=== PATIENT | male | born 1960 | race Caucasian/White ===

== ENCOUNTER 2019-08-30 20:00 | Observation (INO) ==
[2019-08-30] MEDS ORDERED: Acetaminophen 325 MG TABLET PO PRN (21:24)
[2019-08-30] MEDS ORDERED: Naloxone 0.4 MG/ML INJ IVP PRN (21:24)
[2019-08-30] MEDS ORDERED: D5% in Water 1,000 ML IVC PRN (21:30)
[2019-08-30] MEDS ORDERED: 0.9 % Sodium Chloride 1,000 ML IVC SCH (21:30)
[2019-08-30] MEDS ORDERED: *HR* Dextrose 50 % in Water (Syg) 50 ML SYRINGE IVP PRN (21:30)
[2019-08-30] MEDS ORDERED: Insulin DETEMIR 100 UNIT/ML X5UNITS SQ SCH (21:30)
[2019-08-30] MEDS ORDERED: Dextrose Gel 15 GM/37.5 ML TUBE PO PRN ×2 (21:30)
[2019-08-30] MEDS: Insulin LISPRO 300 UNITS/3 ML VIAL SQ SCH (21:40)
[2019-08-30] MEDS ORDERED: *HR* Warfarin 3 MG TABLET PO STA (21:51)
[2019-08-30] MEDS ORDERED: Ipratropium/Albuterol Neb 3 ML IH PRN (22:29)
[2019-08-30 22:41] LABS: Calcium 8.9 mg/dL (8.6-10.3); Potassium 4.7 mEq/L (3.5-5.1)
[2019-08-30 23:40] LABS: Adenovirus Not Detected (Not Detect); Bordetella Pertussis Not Detected (Not Detect); Chlamydophila pneumoniae Not Detected (Not Detect); Coronavirus 229E Not Detected (Not Detect); Coronavirus HKU1 Not Detected (Not Detect); Coronavirus NL63 Not Detected (Not Detect); Coronavirus OC43 Not Detected (Not Detect); Human Metapneumovirus Not Detected (Not Detect); Human Rhinovirus/Enterovirus DETECTED (Not Detect); Influenza A Subtype 2009 H1 Not Detected (Not Detect); Influenza B Not Detected (Not Detect); Mycoplasma pneumoniae Not Detected (Not Detect); Parainfluenza Virus 1 Not Detected (Not Detect); Parainfluenza Virus 2 Not Detected (Not Detect); Parainfluenza Virus 3 Not Detected (Not Detect); Parainfluenza Virus 4 Not Detected (Not Detect); Respiratory Syncytial Virus Not Detected (Not Detect)
[2019-08-30 23:49] LABS: Bilirubin,Urine Negative (Negative); Blood,Urine Negative (Negative); Clarity,Urine Clear (Clear); Color,Urine Yellow (Yellow); Glucose,Urine (UA) Normal (Normal); Ketones,Urine Negative (Negative); Leukocyte Esterase,Urine Negative (Negative); Nitrite,Urine Negative (Negative); Protein,Urine 30 mg/dL (Neg-Trace); Specific Gravity,Urine 1.014 (1.010-1.025); Urobilinogen,Urine Normal (Normal)
[2019-08-30 23:51] LABS: Bacteria,Urine None Seen per hpf (None-Few); Hyaline Casts,Urine None Seen per lpf (None-Few); RBC,Urine 0-3 per hpf (0-3); Squamous Epithelial Cell,Urine Many per lpf (None-Few); WBC,Urine 0-3 per hpf (0-3)
[2019-08-31 01:02] LABS: Basophils # 0.1 K/mcL (0.0-0.2); Basophils % 0.6 %; Eosinophils # 0.3 K/mcL (0.0-0.6); Eosinophils % 2.8 %; Hemoglobin 10.1 g/dL (12.9-16.9); Immature Granulocytes % 0.2 % (0-4); Lymphocytes # 1.3 K/mcL (0.6-4.6); Lymphocytes % 14.5 %; Mean Corpuscular HGB Conc 32.6 g/dL (31.6-35.5); Mean Corpuscular Hemoglobin 32.5 pg (28.0-33.3); Mean Corpuscular Volume 99.7 fL (83.0-100.0); Mean Platelet Volume 12.1 fL (9.4-12.4); Monocytes # 0.7 K/mcL (0.0-1.3); Monocytes % 7.8 %; Neutrophils # 6.6 K/mcL (1.6-8.9); Platelet Count 179 K/mcL (140-400); Red Blood Count 3.11 M/mcL (4.19-5.50); Red Cell Distribution Width 15.8 % (11.5-14.5); Segmented Neutrophils % 74.1 %; White Blood Count 8.9 K/mcL (4.3-11.1)
[2019-08-31 01:10] LABS: INR 2.5; Prothrombin Time 28.8 Seconds (9.4-12.1)
[2019-08-31 01:13] LABS: Activated Partial Thrombo Time 42.5 Seconds (26.0-36.0)
[2019-08-31 01:24] LABS: Albumin 3.8 g/dL (3.5-5.7); Albumin/Globulin Ratio 0.9 (1.1-2.2); Bilirubin,Total 0.5 mg/dL (0.3-1.0); Calcium 8.8 mg/dL (8.6-10.3); Globulin 4.2 g/dL (2.4-3.5); Magnesium 1.9 mg/dL (1.6-2.6); Phosphorous 5.1 mg/dL (2.7-4.5); Potassium 4.4 mEq/L (3.5-5.1)
[2019-08-31] MEDS: Insulin LISPRO 300 UNITS/3 ML VIAL SQ SCH ×2 (08:03→11:54)
[2019-08-31 11:47] VITALS: BP 157/73
[2019-08-31] MEDS ORDERED: FLU Vac QV 19-20 (6Month+)/PF 0.5 ML SYRINGE IM ONE (12:25)
[2019-08-31] MEDS ORDERED: *HR* Warfarin 3 MG TABLET PO ONE (18:00)
[2019-08-31] MEDS ORDERED: Warfarin perPT PO PRN ×2 (18:00)
== END 2019-08-31 13:16 | disposition home or self-care (01) ==
LOC: 2ANU → SUATTDRO 20:03
PROVIDERS: ADMIT Internal Medicine; ATTEND Internal Medicine

== ENCOUNTER 2020-05-24 14:28 | Inpatient (IN) ==
[2020-05-24 15:48] LABS: Basophils # 0.1 K/mcL (0.0-0.2); Basophils % 0.7 %; Eosinophils # 0.2 K/mcL (0.0-0.6); Eosinophils % 2.2 %; Hemoglobin 10.3 g/dL (12.9-16.9); Immature Granulocytes % 0.7 % (0-4); Lymphocytes # 1.5 K/mcL (0.6-4.6); Lymphocytes % 17.3 %; Mean Corpuscular HGB Conc 31.2 g/dL (31.6-35.5); Mean Corpuscular Volume 99.4 fL (83.0-100.0); Mean Platelet Volume 11.7 fL (9.4-12.4); Monocytes # 0.7 K/mcL (0.0-1.3); Neutrophils # 6.2 K/mcL (1.6-8.9); Platelet Count 186 K/mcL (140-400); Red Blood Count 3.32 M/mcL (4.19-5.50); Red Cell Distribution Width 16.5 % (11.5-14.5); Segmented Neutrophils % 71.1 %; White Blood Count 8.7 K/mcL (4.3-11.1)
[2020-05-24] MEDS ORDERED: Furosemide 40 MG/4 ML VIAL IVP ONE (16:02)
[2020-05-24 16:10] LABS: Calcium 8.8 mg/dL (8.6-10.3); Potassium 4.5 mEq/L (3.5-5.1)
[2020-05-24 16:15] LABS: Troponin I 0.04 ng/mL (< 0.04)
[2020-05-24] MEDS ORDERED: Aspirin 81 MG TAB.CHEW PO STA (16:15)
[2020-05-24] MEDS ORDERED: Ondansetron 4 MG/2 ML VIAL IVP PRN (16:57)
[2020-05-24] MEDS ORDERED: Naloxone 0.4 MG/ML INJ IVP PRN (16:57)
[2020-05-24] MEDS ORDERED: *HR* HYDROcodone/Acet 5/325 mg TABLET PO PRN (16:57)
[2020-05-24] MEDS ORDERED: *HR* Dextrose 50 % in Water (Vial) 50 ML VIAL IVP PRN (17:00)
[2020-05-24] MEDS ORDERED: Albuterol 2.5 MG/3 ML NEBULIZER IH PRN (17:00)
[2020-05-24] MEDS ORDERED: D5% in Water 1,000 ML IVC PRN (17:00)
[2020-05-24] MEDS ORDERED: Dextrose Gel 15 GM/37.5 ML TUBE PO PRN ×2 (17:00)
[2020-05-24 17:36] LABS: INR 4.1
[2020-05-24 17:39] LABS: Activated Partial Thrombo Time 46.8 Seconds (26.0-36.0)
[2020-05-24 17:41] LABS: Prothrombin Time 45.4 Seconds (9.4-12.1)
[2020-05-24] MEDS: Bumetanide 1 MG/4 ML VIAL IVP SCH (19:34)
[2020-05-24] MEDS ORDERED: Insulin DETEMIR 100 UNIT/ML X5UNITS SQ SCH (21:00)
[2020-05-24] MEDS ORDERED: *HR* LORazepam 2 MG/ML VIAL IVP ONE (21:54)
[2020-05-24] MEDS: Gabapentin 400 MG CAPSULE PO SCH (22:32)
[2020-05-24] MEDS: hydrALAZINE 25 MG TABLET PO SCH (22:32)
[2020-05-24] MEDS: ISOSORBIDE MONONITRATE 20 MG PO SCH (22:40)
[2020-05-25] MEDS: Warfarin perPT PO SCH ×2 (01:36→20:54)
[2020-05-25 03:04] LABS: Basophils # 0.1 K/mcL (0.0-0.2); Basophils % 0.7 %; Eosinophils # 0.2 K/mcL (0.0-0.6); Eosinophils % 2.9 %; Hematocrit 29.6 % (37.5-50.1); Hemoglobin 9.2 g/dL (12.9-16.9); Immature Granulocytes % 0.4 % (0-4); Lymphocytes # 1.5 K/mcL (0.6-4.6); Lymphocytes % 17.8 %; Mean Corpuscular HGB Conc 31.1 g/dL (31.6-35.5); Mean Corpuscular Hemoglobin 30.6 pg (28.0-33.3); Mean Corpuscular Volume 98.3 fL (83.0-100.0); Mean Platelet Volume 10.8 fL (9.4-12.4); Monocytes # 0.7 K/mcL (0.0-1.3); Monocytes % 8.8 %; Neutrophils # 5.7 K/mcL (1.6-8.9); Platelet Count 169 K/mcL (140-400); Red Blood Count 3.01 M/mcL (4.19-5.50); Red Cell Distribution Width 16.6 % (11.5-14.5); Segmented Neutrophils % 69.4 %; White Blood Count 8.3 K/mcL (4.3-11.1)
[2020-05-25 03:11] LABS: INR 4.3
[2020-05-25 03:18] LABS: Prothrombin Time 47.7 Seconds (9.4-12.1)
[2020-05-25 03:26] LABS: Albumin 3.7 g/dL (3.5-5.7); Bilirubin,Total 0.9 mg/dL (0.3-1.0); Calcium 9.1 mg/dL (8.6-10.3); Globulin 3.7 g/dL (2.4-3.5); Magnesium 2.3 mg/dL (1.6-2.6); Phosphorous 3.8 mg/dL (2.7-4.5); Potassium 4.1 mEq/L (3.5-5.1); Total Protein 7.4 g/dL (6.4-8.9)
[2020-05-25] MEDS: Levothyroxine 25 MCG TABLET PO SCH (05:44)
[2020-05-25] MEDS: Insulin LISPRO 300 UNITS/3 ML VIAL SQ SCH ×3 (09:01→16:59)
[2020-05-25] MEDS: hydrALAZINE 25 MG TABLET PO SCH ×3 (09:08→20:48)
[2020-05-25] MEDS: Gabapentin 400 MG CAPSULE PO SCH (09:08)
[2020-05-25] MEDS: Bumetanide 1 MG/4 ML VIAL IVP SCH ×2 (09:08→16:59)
[2020-05-25] MEDS: ISOSORBIDE MONONITRATE 20 MG PO SCH ×2 (09:08→20:48)
[2020-05-25] MEDS: allopurinoL 300 MG TABLET PO SCH (09:09)
[2020-05-25] MEDS: Gabapentin 300 MG CAPSULE PO SCH ×2 (15:30→20:48)
[2020-05-25] MEDS ORDERED: Insulin DETEMIR 100 UNIT/ML X5UNITS SQ SCH (21:00)
[2020-05-26 04:47] LABS: Basophils # 0.1 K/mcL (0.0-0.2); Basophils % 0.7 %; Eosinophils # 0.2 K/mcL (0.0-0.6); Eosinophils % 2.8 %; Hematocrit 30.4 % (37.5-50.1); Hemoglobin 9.4 g/dL (12.9-16.9); Immature Granulocytes % 0.7 % (0-4); Lymphocytes # 1.7 K/mcL (0.6-4.6); Lymphocytes % 19.3 %; Mean Corpuscular HGB Conc 30.9 g/dL (31.6-35.5); Mean Corpuscular Hemoglobin 30.7 pg (28.0-33.3); Mean Corpuscular Volume 99.3 fL (83.0-100.0); Mean Platelet Volume 11.6 fL (9.4-12.4); Monocytes # 0.9 K/mcL (0.0-1.3); Monocytes % 9.9 %; Neutrophils # 5.8 K/mcL (1.6-8.9); Platelet Count 187 K/mcL (140-400); Red Blood Count 3.06 M/mcL (4.19-5.50); Red Cell Distribution Width 16.5 % (11.5-14.5); Segmented Neutrophils % 66.6 %; White Blood Count 8.7 K/mcL (4.3-11.1)
[2020-05-26 04:52] LABS: INR 3.8
[2020-05-26 05:05] LABS: Calcium 9.6 mg/dL (8.6-10.3); Magnesium 2.1 mg/dL (1.6-2.6); Phosphorous 3.6 mg/dL (2.7-4.5)
[2020-05-26] MEDS: Levothyroxine 25 MCG TABLET PO SCH (05:06)
[2020-05-26] MEDS: Insulin LISPRO 300 UNITS/3 ML VIAL SQ SCH ×2 (07:51→11:45)
[2020-05-26] MEDS: hydrALAZINE 25 MG TABLET PO SCH (07:58)
[2020-05-26] MEDS: Bumetanide 1 MG/4 ML VIAL IVP SCH (07:58)
[2020-05-26] MEDS: Gabapentin 300 MG CAPSULE PO SCH (07:59)
[2020-05-26] MEDS: allopurinoL 300 MG TABLET PO SCH (07:59)
[2020-05-26] MEDS: ISOSORBIDE MONONITRATE 20 MG PO SCH (08:00)
[2020-05-26] MEDS ORDERED: Cholecalciferol (D-3) 1,000 UNIT (25MCG) TABLET PO SCH (09:00)
[2020-05-26] MEDS ORDERED: Ascorbic Acid 500 MG TABLET PO SCH (09:00)
[2020-05-26] MEDS ORDERED: Magnesium Oxide 400 MG TABLET PO SCH (09:00)
[2020-05-26] MEDS ORDERED: (Ezetimibe [Zetia] 10 MG) PO SCH (09:00)
[2020-05-26 10:39] VITALS: BP 152/78
[2020-05-26] MEDS ORDERED: FLU Vac QV 20-21 (6Month+)/PF 0.5 ML SYRINGE IM ONE ×2 (11:51→14:45)
== END 2020-05-26 17:30 | disposition home or self-care (01) | DRG 291 ==
LOC: 2ANU 14:28 → EMEROOARM 14:28 → 2ANU 18:44 → SUATTDRO 05-25 12:15
PROVIDERS: ADMIT Internal Medicine; ATTEND Internal Medicine

== ENCOUNTER 2021-10-01 15:54 | Inpatient (IN) ==
[2021-10-01] MEDS ORDERED: Naloxone 0.4 MG/ML INJ IVP PRN (18:20)
[2021-10-01] MEDS ORDERED: Melatonin 3 MG TABLET PO PRN (18:20)
[2021-10-01] MEDS ORDERED: Dextrose 4 GM Chewable Tablets PO PRN ×2 (18:26)
[2021-10-01] MEDS ORDERED: D5% in Water 1,000 ML IVC PRN (18:26)
[2021-10-01] MEDS ORDERED: *HR* Dextrose 50 % in Water (Syg) 50 ML SYRINGE IVP PRN (18:26)
[2021-10-01] MEDS: Ondansetron 4 MG/2 ML VIAL IVP PRN (20:00)
[2021-10-01] MEDS: Insulin LISPRO 300 UNITS/3 ML VIAL SUBQ SCH (20:01)
[2021-10-01 20:12] LABS: Basophils % 0.2 %; Eosinophils % 0.1 %; Hematocrit 26.8 % (37.5-50.1); Hemoglobin 8.7 g/dL (12.9-16.9); Lymphocytes # 0.3 K/mcL (0.6-4.6); Lymphocytes % 2.7 %; Mean Corpuscular HGB Conc 32.5 g/dL (31.6-35.5); Mean Corpuscular Hemoglobin 31.9 pg (28.0-33.3); Mean Corpuscular Volume 98.2 fL (83.0-100.0); Mean Platelet Volume 11.6 fL (9.4-12.4); Monocytes % 8.6 %; Neutrophils # 10.5 K/mcL (1.6-8.9); Platelet Count 274 K/mcL (140-400); Red Blood Count 2.73 M/mcL (4.19-5.50); Red Cell Distribution Width 15.5 % (11.5-14.5); Segmented Neutrophils % 87.4 %
[2021-10-01 20:29] LABS: Complement C3 120 mg/dL (87-200)
[2021-10-01 20:38] LABS: INR 6.4; Prothrombin Time 70.6 Seconds (9.4-12.1)
[2021-10-01 20:50] LABS: Alanine Aminotransferase 14 Units/L (7-52); Albumin 2.8 g/dL (3.5-5.7); Albumin/Globulin Ratio 0.6 (1.1-2.2); Alkaline Phosphatase 162 Units/L (34-104); Aspartate Amino Transferase 15 Units/L (13-39); Bilirubin,Total 0.5 mg/dL (0.3-1.0); Blood Urea Nitrogen > 130 mg/dL (8-23); Calcium 7.5 mg/dL (8.6-10.3); Carbon Dioxide 11 mEq/L (23-29); Chloride 95 mEq/L (98-107); Globulin 4.8 g/dL (2.4-3.5); Glucose 157 mg/dL (70-105); Potassium 6.3 mEq/L (3.5-5.1); Sodium 123 mEq/L (136-145); Thyroid Stimulating Hormone 7.857 mcIU/mL (0.340-5.600); Total Protein 7.6 g/dL (6.4-8.9); eGFR For African Americans 8 (> 60); eGFR For Non-African Americans 6 (> 60)
[2021-10-01] MEDS ORDERED: 0.9 % Sodium Chloride 250 ML ONE (21:19)
[2021-10-01 21:33] LABS: Hepatitis C Virus Antibody Nonreactive (Nonreactive)
[2021-10-01 21:35] LABS: Hepatitis A Antibody IgM Nonreactive (Nonreactive)
[2021-10-01] MEDS ORDERED: Perflutren Lipid Microsphere 1.3 ML in 0.9 % Sodium Chloride 8.7 ML IVP PRN (22:07)
[2021-10-01] MEDS ORDERED: SODIUM ZIRCONIUM CYCLOSILICATE 5 GM POWD.PACK PO ONE (22:13)
[2021-10-01] MEDS ORDERED: Calcium Gluconate 1gm/50mL 1 GM/50 ML BAG IVPB ONE (22:13)
[2021-10-01] MEDS ORDERED: Insulin Human Regular 10 UNIT in 0.9 % Sodium Chloride 10 ML IV ONE (22:13)
[2021-10-02] MEDS ORDERED: Albumin 25% 25gram/100mL 25 GM/100 ML IV.SOLN IVPB ONE ×2 (01:44→05:46)
[2021-10-02 02:41] LABS: Hepatitis B Surface Antigen Nonreactive (Nonreactive)
[2021-10-02 02:49] LABS: Hematocrit 23.8 % (37.5-50.1); Hemoglobin 8.2 g/dL (12.9-16.9); Immature Granulocytes % 0.8 % (0-4); Lymphocytes # 0.3 K/mcL (0.6-4.6); Lymphocytes % 3.3 %; Mean Corpuscular HGB Conc 34.5 g/dL (31.6-35.5); Mean Corpuscular Hemoglobin 32.9 pg (28.0-33.3); Mean Corpuscular Volume 95.6 fL (83.0-100.0); Mean Platelet Volume 10.9 fL (9.4-12.4); Monocytes % 10.1 %; Neutrophils # 8.4 K/mcL (1.6-8.9); Platelet Count 253 K/mcL (140-400); Red Blood Count 2.49 M/mcL (4.19-5.50); Red Cell Distribution Width 15.2 % (11.5-14.5); Segmented Neutrophils % 85.8 %; White Blood Count 9.8 K/mcL (4.3-11.1)
[2021-10-02 03:00] LABS: INR 4.4; Prothrombin Time 48.3 Seconds (9.4-12.1)
[2021-10-02 03:03] LABS: Chol/HDL Ratio 2.3 (0-4.9); Phosphorous 10.7 mg/dL (2.7-4.5)
[2021-10-02 03:08] LABS: Blood Urea Nitrogen > 130 mg/dL (8-23); Calcium 7.6 mg/dL (8.6-10.3); Carbon Dioxide 15 mEq/L (23-29); Chloride 95 mEq/L (98-107); Glucose 138 mg/dL (70-105); Potassium 6.5 mEq/L (3.5-5.1); Sodium 126 mEq/L (136-145); eGFR For African Americans 7 (> 60); eGFR For Non-African Americans 6 (> 60)
[2021-10-02] MEDS ORDERED: Insulin Human Regular 10 UNIT in 0.9 % Sodium Chloride 10 ML IV ONE (03:11)
[2021-10-02] MEDS ORDERED: *HR* Dextrose 50 % in Water (Syg) 50 ML SYRINGE IVP ONE (03:14)
[2021-10-02] MEDS ORDERED: Albuterol Neb 7.5 MG, Sodium Chloride for inhalation 12 ML IH ONE (03:15)
[2021-10-02] MEDS: Calcium Gluconate 1gm/50mL 1 GM/50 ML BAG IVPB PRN ×2 (03:36→17:05)
[2021-10-02] MEDS ORDERED: 0.9 % Sodium Chloride 250 ML IVC SCH (04:45)
[2021-10-02] MEDS ORDERED: Albumin 25% 25gram/100mL 25 GM/100 ML IV.SOLN ONE (05:46)
[2021-10-02] MEDS: Ondansetron 4 MG/2 ML VIAL IVP PRN (06:35)
[2021-10-02 06:38] LABS: ABG Base Excess -15 mEq/L (-2 to 3); ABG HCO3 12 mEq/L (21-27); ABG Oxygen Saturation 96 % (95-98); ABG PCO2 28 mmHg (35-45); ABG PH 7.23 pH Units (7.32-7.45); ABG PO2 94 mmHg (85-104); ABG TCO2 12 mEq/L (20-26)
[2021-10-02 06:40] LABS: VBG Ionized Calcium 1.01 mmol/L (1.15-1.35)
[2021-10-02 06:40] LABS: Eosinophils % 0.1 %; Hematocrit 22.6 % (37.5-50.1); Hemoglobin 7.4 g/dL (12.9-16.9); Immature Granulocytes % 0.8 % (0-4); Lymphocytes # 0.4 K/mcL (0.6-4.6); Lymphocytes % 4.6 %; Mean Corpuscular HGB Conc 32.7 g/dL (31.6-35.5); Mean Corpuscular Hemoglobin 32.2 pg (28.0-33.3); Mean Corpuscular Volume 98.3 fL (83.0-100.0); Mean Platelet Volume 11.3 fL (9.4-12.4); Monocytes # 1.2 K/mcL (0.0-1.3); Monocytes % 13.6 %; Nucleated Red Blood Cells 0.2 /100 WBC (0); Platelet Count 205 K/mcL (140-400); Red Cell Distribution Width 15.5 % (11.5-14.5); Segmented Neutrophils % 80.9 %; White Blood Count 8.7 K/mcL (4.3-11.1)
[2021-10-02] MEDS ORDERED: SODIUM ZIRCONIUM CYCLOSILICATE 5 GM POWD.PACK PO ONE (06:46)
[2021-10-02 06:51] LABS: INR 3.5; Prothrombin Time 38.8 Seconds (9.4-12.1)
[2021-10-02] MEDS ORDERED: 0.9 % Sodium Chloride 250 ML ONE (06:54)
[2021-10-02 06:59] LABS: Alanine Aminotransferase 12 Units/L (7-52); Albumin/Globulin Ratio 0.8 (1.1-2.2); Alkaline Phosphatase 135 Units/L (34-104); Aspartate Amino Transferase 13 Units/L (13-39); Bilirubin,Direct 0.2 mg/dL (0.0-0.2); Bilirubin,Indirect 0.3 mg/dL (0.0-1.0); Bilirubin,Total 0.5 mg/dL (0.3-1.0); Blood Urea Nitrogen > 130 mg/dL (8-23); Calcium 7.5 mg/dL (8.6-10.3); Carbon Dioxide 12 mEq/L (23-29); Chloride 95 mEq/L (98-107); Globulin 3.9 g/dL (2.4-3.5); Glucose 147 mg/dL (70-105); Magnesium 2.2 mg/dL (1.6-2.6); Potassium 5.6 mEq/L (3.5-5.1); Sodium 126 mEq/L (136-145); Total Protein 6.9 g/dL (6.4-8.9); eGFR For African Americans 7 (> 60); eGFR For Non-African Americans 6 (> 60)
[2021-10-02] MEDS: Insulin LISPRO 300 UNITS/3 ML VIAL SUBQ SCH ×4 (08:14→21:13)
[2021-10-02] MEDS: Sodium Bicarbonate 150 MEQ in D5% in Water 1,000 ML IVC SCH (08:15)
[2021-10-02] MEDS ORDERED: 0.9 % Sodium Chloride 1,000 ML ONE (09:16)
[2021-10-02] MEDS ORDERED: *HR* Heparin 5,000 UNIT/ML VIAL ONE (09:51)
[2021-10-02] MEDS: Norepinephrine 4 MG/254 ML IV.SOLN IVC SCH ×2 (10:27→21:21)
[2021-10-02] MEDS ORDERED: *HR* Rocuronium Bromide 50 MG/5 ML VIAL IVP ONE (10:42)
[2021-10-02] MEDS ORDERED: *HR* Etomidate 20 MG/10 ML AMPUL IVP ONE (10:42)
[2021-10-02] MEDS ORDERED: *HR* Midazolam HCl 5 MG/5 ML VIAL IVP ONE (10:42)
[2021-10-02] MEDS ORDERED: Calcium Gluconate 1gm/50mL 1 GM/50 ML BAG IVPB PRN ×2 (10:47)
[2021-10-02 11:20] LABS: Hematocrit 24.1 % (37.5-50.1); Hemoglobin 7.9 g/dL (12.9-16.9)
[2021-10-02 11:28] LABS: INR 2.9; Prothrombin Time 32.2 Seconds (9.4-12.1)
[2021-10-02] MEDS ORDERED: Artificial Tears SOLN 15 ML BOTTLE BOTH EYES PRN (11:43)
[2021-10-02] MEDS: Dexmedetomidine HCl 400 MCG/100 ML MLS IVC SCH ×3 (11:58→21:16)
[2021-10-02] MEDS: FentaNYL (PF) 1,000 MCG/100 ML IV.SOLN IVC SCH ×3 (11:58→23:46)
[2021-10-02 11:59] LABS: Blood Urea Nitrogen > 130 mg/dL (8-23); Calcium 7.5 mg/dL (8.6-10.3); Carbon Dioxide 12 mEq/L (23-29); Chloride 94 mEq/L (98-107); Glucose 187 mg/dL (70-105); Potassium 5.8 mEq/L (3.5-5.1); Sodium 126 mEq/L (136-145); eGFR For African Americans 7 (> 60); eGFR For Non-African Americans 6 (> 60)
[2021-10-02] MEDS ORDERED: Cefepime HCl 2,000 MG in 0.9 % Sodium Chloride 10 ML IVPB SCH (12:00)
[2021-10-02] MEDS: 0.9 % Sodium Chloride 1,000 ML PRIME SCH ×3 (12:09→13:24)
[2021-10-02 13:18] LABS: INR 2.2; Prothrombin Time 24.3 Seconds (9.4-12.1)
[2021-10-02] MEDS ORDERED: 0.9 % Sodium Chloride 1,000 ML PRIME PRN (14:16)
[2021-10-02 14:49] LABS: RBC,Peritoneal Fluid 6000 RBC/mcL
[2021-10-02 15:10] LABS: Hematocrit 25.7 % (37.5-50.1); Hemoglobin 8.4 g/dL (12.9-16.9)
[2021-10-02 15:12] LABS: Total Protein,Peritoneal Fluid 4.5 g/dL
[2021-10-02 15:26] LABS: Blood Urea Nitrogen > 130 mg/dL (8-23); Calcium 7.4 mg/dL (8.6-10.3); Carbon Dioxide 13 mEq/L (23-29); Chloride 94 mEq/L (98-107); Glucose 216 mg/dL (70-105); Potassium 6.2 mEq/L (3.5-5.1); Sodium 125 mEq/L (136-145); eGFR For African Americans 7 (> 60); eGFR For Non-African Americans 6 (> 60)
[2021-10-02 15:37] LABS: Basophils,Peritoneal Fluid 0 %; Eosinophils,Peritoneal Fluid 0 %
[2021-10-02 15:38] LABS: Appearance of Peritoneal Fl CLOUDY (Clear)
[2021-10-02] MEDS: PrismaSATE BGK 4/2.5 5,000 ML CRRT SCH ×4 (15:48→22:38)
[2021-10-02] MEDS: Calcium Chloride 4,000 MG in 0.9 % Sodium Chloride 1,000 ML CRRT SCH (15:48)
[2021-10-02] MEDS: SODIUM CITRATE 500 ML CRRT SCH ×2 (15:49→16:43)
[2021-10-02] MEDS: Artificial Tears SOLN 15 ML BOTTLE BOTH EYES SCH ×4 (15:49→23:47)
[2021-10-02 15:57] LABS: ABG Base Excess -13 mEq/L (-2 to 3); ABG HCO3 12 mEq/L (21-27); ABG Oxygen Saturation 99 % (95-98); ABG PCO2 26 mmHg (35-45); ABG PH 7.28 pH Units (7.32-7.45); ABG PO2 153 mmHg (85-104); ABG TCO2 13 mEq/L (20-26); Blood Gas VT 450 cc
[2021-10-02] MEDS: SODIUM ZIRCONIUM CYCLOSILICATE 5 GM POWD.PACK PO SCH ×2 (16:39→19:41)
[2021-10-02] MEDS: MetroNIDAZOLE 500 MG/100 ML 500 MG/100 ML BAG IVPB SCH ×2 (16:40→23:57)
[2021-10-02 16:49] LABS: VBG Ionized Calcium 0.96 mmol/L (1.15-1.35)
[2021-10-02] MEDS: Pantoprazole 40 MG VIAL IVP SCH (17:21)
[2021-10-02 17:23] LABS: Bilirubin,Urine Negative (Negative); Blood,Urine Large (Negative); Clarity,Urine Ex.Turbid (Clear); Glucose,Urine (UA) Normal (Normal); Hyaline Casts,Urine Many per lpf (None Seen); Ketones,Urine Negative (Negative); Leukocyte Esterase,Urine Moderate (Negative); Nitrite,Urine Negative (Negative); Protein,Urine >=300 mg/dL (Neg-Trace); RBC,Urine TNTC per hpf (0-3); Specific Gravity,Urine 1.019 (1.010-1.025); Urobilinogen,Urine Normal (Normal); WBC,Urine TNTC per hpf (0-3)
[2021-10-02 17:25] LABS: Color,Urine Light-Red (Yellow)
[2021-10-02 18:00] LABS: Chloride,Urine 69 mEq/L; Creatinine,Urine 73 mg/dL; Microalbumin,Urine > 1350 mg/L; Potassium,Urine 19.6 mEq/L; Sodium, Urine 78.3 mEq/L
[2021-10-02 18:40] LABS: VBG Ionized Calcium 0.39 mmol/L (1.15-1.35)
[2021-10-02] MEDS: Chlorhexidine Rinse 15 ML MOUTHWASH MM SCH (19:41)
[2021-10-02 21:07] LABS: Hematocrit 23.8 % (37.5-50.1); Hemoglobin 8.1 g/dL (12.9-16.9)
[2021-10-02 21:08] LABS: VBG Ionized Calcium 1.05 mmol/L (1.15-1.35)
[2021-10-02 21:28] LABS: Calcium 8.1 mg/dL (8.6-10.3); Potassium 5.1 mEq/L (3.5-5.1)
[2021-10-02 23:17] LABS: ABG Ionized Calcium 1.07 mmol/L (1.15-1.35)
[2021-10-03] MEDS: SODIUM CITRATE 500 ML CRRT SCH ×5 (00:02→18:27)
[2021-10-03] MEDS: Insulin LISPRO 300 UNITS/3 ML VIAL SUBQ SCH ×7 (00:17→23:23)
[2021-10-03] MEDS: PrismaSATE BGK 4/2.5 5,000 ML CRRT SCH ×14 (02:00→22:25)
[2021-10-03 02:32] LABS: VBG Ionized Calcium 1.09 mmol/L (1.15-1.35)
[2021-10-03] MEDS: Dexmedetomidine HCl 400 MCG/100 ML MLS IVC SCH ×5 (03:12→21:53)
[2021-10-03 03:43] LABS: Calcium 8.2 mg/dL (8.6-10.3); Potassium 4.5 mEq/L (3.5-5.1)
[2021-10-03] MEDS: Artificial Tears SOLN 15 ML BOTTLE BOTH EYES SCH ×6 (03:46→23:56)
[2021-10-03 04:20] LABS: Hematocrit 25.5 % (37.5-50.1); Hemoglobin 8.8 g/dL (12.9-16.9)
[2021-10-03 04:44] LABS: ABG Base Excess -2 mEq/L (-2 to 3); ABG HCO3 21 mEq/L (21-27); ABG Oxygen Saturation 100 % (95-98); ABG PCO2 30 mmHg (35-45); ABG PH 7.45 pH Units (7.32-7.45); ABG PO2 176 mmHg (85-104); ABG TCO2 22 mEq/L (20-26); Blood Gas Modality AF; Blood Gas VT 450 cc
[2021-10-03 05:17] LABS: VBG Ionized Calcium 1.13 mmol/L (1.15-1.35)
[2021-10-03] MEDS: Calcium Chloride 4,000 MG in 0.9 % Sodium Chloride 1,000 ML CRRT SCH ×2 (05:24→16:03)
[2021-10-03] MEDS: FentaNYL (PF) 1,000 MCG/100 ML IV.SOLN IVC SCH ×3 (05:55→18:51)
[2021-10-03] MEDS: Pantoprazole 40 MG VIAL IVP SCH ×2 (05:56→17:01)
[2021-10-03] MEDS: Sodium Bicarbonate 150 MEQ in D5% in Water 1,000 ML IVC SCH (06:53)
[2021-10-03] MEDS: Chlorhexidine Rinse 15 ML MOUTHWASH MM SCH ×2 (07:23→20:25)
[2021-10-03] MEDS: MetroNIDAZOLE 500 MG/100 ML 500 MG/100 ML BAG IVPB SCH ×3 (07:23→23:56)
[2021-10-03] MEDS: SODIUM ZIRCONIUM CYCLOSILICATE 5 GM POWD.PACK PO SCH ×2 (07:23→14:04)
[2021-10-03 08:04] LABS: Troponin I 1.43 ng/mL (< 0.04)
[2021-10-03 08:06] LABS: Basophils % 0.2 %; Eosinophils # 0.1 K/mcL (0.0-0.6); Eosinophils % 0.6 %; Hemoglobin 9.3 g/dL (12.9-16.9); Immature Granulocytes % 0.9 % (0-4); Lymphocytes # 0.5 K/mcL (0.6-4.6); Lymphocytes % 3.9 %; Mean Corpuscular HGB Conc 34.4 g/dL (31.6-35.5); Mean Corpuscular Hemoglobin 32.4 pg (28.0-33.3); Mean Corpuscular Volume 94.1 fL (83.0-100.0); Mean Platelet Volume 11.2 fL (9.4-12.4); Monocytes # 1.1 K/mcL (0.0-1.3); Monocytes % 8.6 %; Neutrophils # 10.8 K/mcL (1.6-8.9); Nucleated Red Blood Cells 0.2 /100 WBC (0); Platelet Count 267 K/mcL (140-400); Red Blood Count 2.87 M/mcL (4.19-5.50); Red Cell Distribution Width 15.1 % (11.5-14.5); Segmented Neutrophils % 85.8 %; White Blood Count 12.6 K/mcL (4.3-11.1)
[2021-10-03 08:07] LABS: Estimated Average Glucose 169 mg/dl; Hemoglobin A1C 7.5 %
[2021-10-03] MEDS: Cefepime HCl 2,000 MG in 0.9 % Sodium Chloride 10 ML IVPB SCH ×2 (08:14→20:23)
[2021-10-03 08:15] LABS: INR 1.8; Prothrombin Time 20.5 Seconds (9.4-12.1)
[2021-10-03 08:32] LABS: Calcium 8.5 mg/dL (8.6-10.3); Potassium 4.4 mEq/L (3.5-5.1)
[2021-10-03] MEDS: Phenylephrine 50 MG in 0.9 % Sodium Chloride 250 ML IVC SCH ×2 (09:28→19:00)
[2021-10-03] MEDS: Norepinephrine 4 MG/254 ML IV.SOLN IVC SCH ×2 (10:34→23:56)
[2021-10-03] MEDS ORDERED: 0.9 % Sodium Chloride 1,000 ML ONE (15:29)
[2021-10-03 17:08] LABS: ABG Ionized Calcium 1.21 mmol/L (1.15-1.35)
[2021-10-03 19:44] LABS: Hematocrit 29.8 % (37.5-50.1); Hemoglobin 10.1 g/dL (12.9-16.9)
[2021-10-03 23:26] LABS: VBG Ionized Calcium 0.73 mmol/L (1.15-1.35)
[2021-10-04] MEDS: FentaNYL (PF) 1,000 MCG/100 ML IV.SOLN IVC SCH ×6 (00:26→22:45)
[2021-10-04 00:37] LABS: VBG Ionized Calcium 1.26 mmol/L (1.15-1.35)
[2021-10-04] MEDS: SODIUM CITRATE 500 ML CRRT SCH ×4 (00:37→19:24)
[2021-10-04] MEDS: Dexmedetomidine HCl 400 MCG/100 ML MLS IVC SCH ×4 (01:58→18:21)
[2021-10-04] MEDS: Calcium Chloride 4,000 MG in 0.9 % Sodium Chloride 1,000 ML CRRT SCH ×2 (02:51→15:00)
[2021-10-04 03:38] LABS: Basophils % 0.3 %; Eosinophils # 0.1 K/mcL (0.0-0.6); Eosinophils % 1.1 %; Hematocrit 30.3 % (37.5-50.1); Hemoglobin 10.2 g/dL (12.9-16.9); Immature Granulocytes % 0.7 % (0-4); Lymphocytes # 0.9 K/mcL (0.6-4.6); Lymphocytes % 7.3 %; Mean Corpuscular HGB Conc 33.7 g/dL (31.6-35.5); Mean Corpuscular Hemoglobin 32.4 pg (28.0-33.3); Mean Corpuscular Volume 96.2 fL (83.0-100.0); Monocytes # 1.7 K/mcL (0.0-1.3); Monocytes % 14.7 %; Neutrophils # 8.9 K/mcL (1.6-8.9); Nucleated Red Blood Cells 0.3 /100 WBC (0); Platelet Count 239 K/mcL (140-400); Red Blood Count 3.15 M/mcL (4.19-5.50); Red Cell Distribution Width 15.7 % (11.5-14.5); Segmented Neutrophils % 75.9 %; White Blood Count 11.7 K/mcL (4.3-11.1)
[2021-10-04] MEDS: Phenylephrine 50 MG in 0.9 % Sodium Chloride 250 ML IVC SCH ×2 (03:39→23:28)
[2021-10-04 03:55] LABS: VBG HCO3 26 mEq/L (21-27); VBG PCO2 43 mmHg (41-51); VBG PH 7.39 pH Units (7.32-7.42); VBG PO2 62 mmHg (25-50)
[2021-10-04 03:57] LABS: Albumin 2.6 g/dL (3.5-5.7); Albumin/Globulin Ratio 0.7 (1.1-2.2); Bilirubin,Direct 0.4 mg/dL (0.0-0.2); Bilirubin,Indirect 0.3 mg/dL (0.0-1.0); Bilirubin,Total 0.7 mg/dL (0.3-1.0); Calcium 9.1 mg/dL (8.6-10.3); Globulin 3.8 g/dL (2.4-3.5); Potassium 4.5 mEq/L (3.5-5.1); Total Protein 6.4 g/dL (6.4-8.9)
[2021-10-04] MEDS: PrismaSATE BGK 4/2.5 5,000 ML CRRT SCH ×10 (04:12→15:29)
[2021-10-04] MEDS: Artificial Tears SOLN 15 ML BOTTLE BOTH EYES SCH ×6 (04:12→22:48)
[2021-10-04] MEDS: Insulin LISPRO 300 UNITS/3 ML VIAL SUBQ SCH ×6 (04:12→23:16)
[2021-10-04 04:29] LABS: ABG Base Excess 1 mEq/L (-2 to 3); ABG HCO3 25 mEq/L (21-27); ABG Oxygen Saturation 90 % (95-98); ABG PCO2 37 mmHg (35-45); ABG PH 7.44 pH Units (7.32-7.45); ABG PO2 57 mmHg (85-104); ABG TCO2 26 mEq/L (20-26); Blood Gas Modality AF; Blood Gas VT 450 cc
[2021-10-04] MEDS: Pantoprazole 40 MG VIAL IVP SCH ×2 (05:15→17:12)
[2021-10-04] MEDS: Sodium Bicarbonate 150 MEQ in D5% in Water 1,000 ML IVC SCH (06:00)
[2021-10-04 06:16] LABS: VBG Ionized Calcium 1.28 mmol/L (1.15-1.35)
[2021-10-04] MEDS: MetroNIDAZOLE 500 MG/100 ML 500 MG/100 ML BAG IVPB SCH ×3 (07:53→22:48)
[2021-10-04] MEDS: Chlorhexidine Rinse 15 ML MOUTHWASH MM SCH ×2 (07:53→19:28)
[2021-10-04] MEDS: Norepinephrine 4 MG/254 ML IV.SOLN IVC SCH (07:55)
[2021-10-04] MEDS: Cefepime HCl 2,000 MG in 0.9 % Sodium Chloride 10 ML IVPB SCH ×2 (08:03→19:28)
[2021-10-04] MEDS ORDERED: 0.9 % Sodium Chloride 1,000 ML ONE (11:17)
[2021-10-04 12:21] LABS: VBG Ionized Calcium 1.31 mmol/L (1.15-1.35)
[2021-10-04 17:55] LABS: VBG Ionized Calcium 1.32 mmol/L (1.15-1.35)
[2021-10-04 23:04] LABS: VBG Ionized Calcium 1.35 mmol/L (1.15-1.35)
[2021-10-04 23:11] LABS: Calcium 9.5 mg/dL (8.6-10.3); Potassium 4.4 mEq/L (3.5-5.1)
[2021-10-05] MEDS ORDERED: *HR* Midazolam HCl 5 MG/5 ML VIAL IVP ONE (00:19)
[2021-10-05] MEDS: Calcium Chloride 4,000 MG in 0.9 % Sodium Chloride 1,000 ML CRRT SCH ×2 (01:21→16:00)
[2021-10-05] MEDS: PrismaSATE BGK 4/2.5 5,000 ML CRRT SCH ×14 (02:00→23:23)
[2021-10-05] MEDS: FentaNYL (PF) 1,000 MCG/100 ML IV.SOLN IVC SCH ×2 (02:14→07:20)
[2021-10-05] MEDS: SODIUM CITRATE 500 ML CRRT SCH ×5 (02:16→20:39)
[2021-10-05] MEDS: Insulin LISPRO 300 UNITS/3 ML VIAL SUBQ SCH ×6 (03:45→23:28)
[2021-10-05] MEDS: Artificial Tears SOLN 15 ML BOTTLE BOTH EYES SCH ×6 (03:46→23:24)
[2021-10-05 04:03] LABS: ABG Base Excess 1 mEq/L (-2 to 3); ABG HCO3 26 mEq/L (21-27); ABG Oxygen Saturation 90 % (95-98); ABG PCO2 41 mmHg (35-45); ABG PO2 58 mmHg (85-104); ABG TCO2 27 mEq/L (20-26); Blood Gas Modality AF; Blood Gas VT 450 cc
[2021-10-05] MEDS: *HR* Heparin 5,000 UNIT/ML VIAL IVP PRN (04:03)
[2021-10-05] MEDS: Norepinephrine 4 MG/254 ML IV.SOLN IVC SCH ×3 (04:08→23:29)
[2021-10-05] MEDS: Pantoprazole 40 MG VIAL IVP SCH ×2 (05:22→17:07)
[2021-10-05 05:37] LABS: VBG Ionized Calcium 1.39 mmol/L (1.15-1.35)
[2021-10-05 05:48] LABS: Basophils # 0.1 K/mcL (0.0-0.2); Basophils % 0.4 %; Eosinophils # 0.1 K/mcL (0.0-0.6); Eosinophils % 0.4 %; Hematocrit 28.7 % (37.5-50.1); Hemoglobin 9.6 g/dL (12.9-16.9); Immature Granulocytes % 0.7 % (0-4); Lymphocytes # 0.9 K/mcL (0.6-4.6); Lymphocytes % 6.3 %; Mean Corpuscular HGB Conc 33.4 g/dL (31.6-35.5); Mean Corpuscular Volume 98.6 fL (83.0-100.0); Mean Platelet Volume 10.7 fL (9.4-12.4); Monocytes # 1.6 K/mcL (0.0-1.3); Monocytes % 11.2 %; Neutrophils # 11.3 K/mcL (1.6-8.9); Nucleated Red Blood Cells 0.4 /100 WBC (0); Platelet Count 236 K/mcL (140-400); Red Blood Count 2.91 M/mcL (4.19-5.50)
[2021-10-05 05:56] LABS: Prothrombin Time 22.1 Seconds (9.4-12.1)
[2021-10-05 06:07] LABS: Albumin 2.7 g/dL (3.5-5.7); Albumin/Globulin Ratio 0.7 (1.1-2.2); Bilirubin,Direct 0.4 mg/dL (0.0-0.2); Bilirubin,Indirect 0.5 mg/dL (0.0-1.0); Bilirubin,Total 0.9 mg/dL (0.3-1.0); Calcium 9.7 mg/dL (8.6-10.3); Globulin 3.8 g/dL (2.4-3.5); Phosphorous 2.6 mg/dL (2.7-4.5); Potassium 4.3 mEq/L (3.5-5.1); Total Protein 6.5 g/dL (6.4-8.9)
[2021-10-05] MEDS: Chlorhexidine Rinse 15 ML MOUTHWASH MM SCH ×2 (07:22→19:20)
[2021-10-05] MEDS: MetroNIDAZOLE 500 MG/100 ML 500 MG/100 ML BAG IVPB SCH ×3 (07:22→23:26)
[2021-10-05] MEDS: Cefepime HCl 2,000 MG in 0.9 % Sodium Chloride 10 ML IVPB SCH ×2 (08:09→20:36)
[2021-10-05 08:10] LABS: VBG Ionized Calcium 1.39 mmol/L (1.15-1.35)
[2021-10-05] MEDS ORDERED: Amiodarone Premix 360 MG/200 ML BAG IVC ONE (08:56)
[2021-10-05 10:00] LABS: VBG Ionized Calcium 1.42 mmol/L (1.15-1.35)
[2021-10-05 10:42] LABS: ANCA IFA Titer <1:20 (<1:20)
[2021-10-05] MEDS: Amiodarone Premix 360 MG/200 ML BAG IVC SCH ×2 (11:04→19:20)
[2021-10-05 11:55] LABS: VBG Ionized Calcium 1.41 mmol/L (1.15-1.35)
[2021-10-05] MEDS ORDERED: Ondansetron 4 MG/2 ML VIAL IVP PRN (11:58)
[2021-10-05 14:23] LABS: VBG Ionized Calcium 1.33 mmol/L (1.15-1.35)
[2021-10-05 14:26] LABS: Immunoglobulin G 2788 mg/dL (768-1632)
[2021-10-05 14:27] LABS: Immunoglobulin A 633 mg/dL (68-408); Immunoglobulin M 123 mg/dL (35-263)
[2021-10-05 14:28] LABS: ANCA IFA Pattern NONE DETECTED (None Detected); Serine Protease-3 Antibody 14 AU/mL (0-19)
[2021-10-05] MEDS ORDERED: *HR* Promethazine 25 MG/ML VIAL IM ONE (17:54)
[2021-10-05 18:55] LABS: Alpha 2 Globulin (PEP) 0.84 g/dL (0.48-1.05); Beta Globulin (PEP) 0.91 g/dL (0.48-1.10)
[2021-10-05] MEDS ORDERED: Naloxone 0.4 MG/ML INJ IVP PRN (20:12)
[2021-10-05 20:14] LABS: VBG Ionized Calcium 1.27 mmol/L (1.15-1.35)
[2021-10-05] MEDS: Dexmedetomidine HCl 400 MCG/100 ML MLS IVC SCH (23:30)
[2021-10-06] MEDS: SODIUM CITRATE 500 ML CRRT SCH ×2 (02:23→09:31)
[2021-10-06] MEDS: Artificial Tears SOLN 15 ML BOTTLE BOTH EYES SCH ×5 (02:24→19:16)
[2021-10-06 02:40] LABS: Basophils % 0.2 %; Eosinophils # 0.1 K/mcL (0.0-0.6); Eosinophils % 0.6 %; Hematocrit 23.5 % (37.5-50.1); Immature Granulocytes % 0.8 % (0-4); Lymphocytes # 0.8 K/mcL (0.6-4.6); Lymphocytes % 7.7 %; Mean Corpuscular HGB Conc 31.1 g/dL (31.6-35.5); Mean Corpuscular Hemoglobin 31.7 pg (28.0-33.3); Mean Corpuscular Volume 102.2 fL (83.0-100.0); Mean Platelet Volume 10.6 fL (9.4-12.4); Monocytes # 0.9 K/mcL (0.0-1.3); Monocytes % 8.8 %; Neutrophils # 8.7 K/mcL (1.6-8.9); Nucleated Red Blood Cells 0.5 /100 WBC (0); Platelet Count 191 K/mcL (140-400); Red Cell Distribution Width 16.2 % (11.5-14.5); Segmented Neutrophils % 81.9 %; White Blood Count 10.6 K/mcL (4.3-11.1)
[2021-10-06 02:46] LABS: VBG Ionized Calcium 1.28 mmol/L (1.15-1.35)
[2021-10-06 02:47] LABS: Hemoglobin 7.3 g/dL (12.9-16.9)
[2021-10-06] MEDS: PrismaSATE BGK 4/2.5 5,000 ML CRRT SCH ×2 (02:48)
[2021-10-06 02:55] LABS: Albumin 2.4 g/dL (3.5-5.7); Albumin/Globulin Ratio 0.7 (1.1-2.2); Bilirubin,Direct 0.4 mg/dL (0.0-0.2); Bilirubin,Indirect 0.3 mg/dL (0.0-1.0); Bilirubin,Total 0.7 mg/dL (0.3-1.0); Calcium 8.8 mg/dL (8.6-10.3); Globulin 3.4 g/dL (2.4-3.5); Phosphorous 2.2 mg/dL (2.7-4.5); Potassium 4.3 mEq/L (3.5-5.1); Total Protein 5.8 g/dL (6.4-8.9)
[2021-10-06] MEDS: Insulin LISPRO 300 UNITS/3 ML VIAL SUBQ SCH ×5 (03:03→20:00)
[2021-10-06] MEDS ORDERED: *HR* Heparin 5,000 UNIT/ML VIAL ONE (03:22)
[2021-10-06] MEDS: *HR* Heparin 5,000 UNIT/ML VIAL IVP PRN ×2 (03:33→04:30)
[2021-10-06 04:19] LABS: INR 2.5; Prothrombin Time 28.1 Seconds (9.4-12.1)
[2021-10-06] MEDS: Pantoprazole 40 MG VIAL IVP SCH ×2 (05:06→17:40)
[2021-10-06 08:19] LABS: Hematocrit 20.6 % (37.5-50.1); Hemoglobin 6.5 g/dL (12.9-16.9)
[2021-10-06] MEDS: MetroNIDAZOLE 500 MG/100 ML 500 MG/100 ML BAG IVPB SCH (08:22)
[2021-10-06 08:30] LABS: Activated Partial Thrombo Time 35.5 Seconds (26.0-36.0)
[2021-10-06] MEDS: Cefepime HCl 2,000 MG in 0.9 % Sodium Chloride 10 ML IVPB SCH (09:30)
[2021-10-06] MEDS: Chlorhexidine Rinse 15 ML MOUTHWASH MM SCH ×2 (09:32→19:17)
[2021-10-06] MEDS ORDERED: 0.9 % Sodium Chloride 250 ML ONE (09:40)
[2021-10-06 10:57] LABS: IFE Reflexed IFE Done
[2021-10-06 17:02] LABS: Hematocrit 19.5 % (37.5-50.1); Hemoglobin 6.4 g/dL (12.9-16.9)
[2021-10-06 17:12] LABS: INR 1.8; Prothrombin Time 19.8 Seconds (9.4-12.1)
[2021-10-06] MEDS: Norepinephrine 4 MG/254 ML IV.SOLN IVC SCH (19:16)
[2021-10-07 00:22] LABS: Hematocrit 24.8 % (37.5-50.1); Hemoglobin 7.7 g/dL (12.9-16.9)
[2021-10-07] MEDS: Insulin LISPRO 300 UNITS/3 ML VIAL SUBQ SCH ×6 (01:31→20:29)
[2021-10-07] MEDS: Artificial Tears SOLN 15 ML BOTTLE BOTH EYES SCH ×3 (01:31→08:17)
[2021-10-07 03:51] LABS: Basophils % 0.3 %; Eosinophils % 0.4 %; Hematocrit 23.7 % (37.5-50.1); Hemoglobin 7.8 g/dL (12.9-16.9); Lymphocytes # 0.9 K/mcL (0.6-4.6); Lymphocytes % 7.9 %; Mean Corpuscular HGB Conc 32.9 g/dL (31.6-35.5); Mean Corpuscular Hemoglobin 33.2 pg (28.0-33.3); Mean Corpuscular Volume 100.9 fL (83.0-100.0); Mean Platelet Volume 10.5 fL (9.4-12.4); Monocytes # 0.9 K/mcL (0.0-1.3); Monocytes % 8.3 %; Neutrophils # 8.9 K/mcL (1.6-8.9); Nucleated Red Blood Cells 0.5 /100 WBC (0); Platelet Count 190 K/mcL (140-400); Red Blood Count 2.35 M/mcL (4.19-5.50); Red Cell Distribution Width 17.7 % (11.5-14.5); Segmented Neutrophils % 82.1 %; White Blood Count 10.8 K/mcL (4.3-11.1)
[2021-10-07 03:52] LABS: INR 1.6
[2021-10-07 04:04] LABS: Albumin 2.6 g/dL (3.5-5.7); Albumin/Globulin Ratio 0.7 (1.1-2.2); Bilirubin,Direct 0.3 mg/dL (0.0-0.2); Bilirubin,Indirect 0.6 mg/dL (0.0-1.0); Bilirubin,Total 0.9 mg/dL (0.3-1.0); Calcium 8.6 mg/dL (8.6-10.3); Globulin 3.5 g/dL (2.4-3.5); Magnesium 2.2 mg/dL (1.6-2.6); Phosphorous 3.8 mg/dL (2.7-4.5); Potassium 4.3 mEq/L (3.5-5.1); Total Protein 6.1 g/dL (6.4-8.9)
[2021-10-07] MEDS: Pantoprazole 40 MG VIAL IVP SCH ×2 (05:00→17:23)
[2021-10-07] MEDS: Dexmedetomidine HCl 400 MCG/100 ML MLS IVC SCH (05:01)
[2021-10-07] MEDS: Chlorhexidine Rinse 15 ML MOUTHWASH MM SCH ×2 (08:19→20:29)
[2021-10-07] MEDS ORDERED: Artificial Tears SOLN 15 ML BOTTLE BOTH EYES PRN (11:07)
[2021-10-07] MEDS ORDERED: D5% in Water 1,000 ML IVC PRN (11:07)
[2021-10-07] MEDS ORDERED: Dextrose 4 GM Chewable Tablets PO PRN ×2 (11:07)
[2021-10-07] MEDS ORDERED: *HR* Dextrose 50 % in Water (Syg) 50 ML SYRINGE IVP PRN (11:07)
[2021-10-07] MEDS ORDERED: Naloxone 0.4 MG/ML INJ IVP PRN (11:07)
[2021-10-07] MEDS: Bumetanide 1 MG TABLET PO SCH (17:24)
[2021-10-07] MEDS: Gabapentin 300 MG CAPSULE PO SCH (20:29)
[2021-10-07] MEDS ORDERED: Gabapentin 400 MG CAPSULE PO SCH (21:00)
[2021-10-08] MEDS: Insulin LISPRO 300 UNITS/3 ML VIAL SUBQ SCH ×6 (02:33→21:08)
[2021-10-08 04:42] LABS: Basophils % 0.2 %; Eosinophils % 0.3 %; Hemoglobin 7.6 g/dL (12.9-16.9); Immature Granulocytes % 0.8 % (0-4); Lymphocytes # 0.7 K/mcL (0.6-4.6); Lymphocytes % 6.2 %; Mean Corpuscular HGB Conc 31.7 g/dL (31.6-35.5); Mean Corpuscular Hemoglobin 31.8 pg (28.0-33.3); Mean Corpuscular Volume 100.4 fL (83.0-100.0); Monocytes # 1.3 K/mcL (0.0-1.3); Monocytes % 10.7 %; Neutrophils # 9.5 K/mcL (1.6-8.9); Platelet Count 177 K/mcL (140-400); Red Blood Count 2.39 M/mcL (4.19-5.50); Red Cell Distribution Width 17.2 % (11.5-14.5); Segmented Neutrophils % 81.8 %; White Blood Count 11.6 K/mcL (4.3-11.1)
[2021-10-08 04:49] LABS: VBG Ionized Calcium 1.14 mmol/L (1.15-1.35)
[2021-10-08 05:02] LABS: Albumin 2.7 g/dL (3.5-5.7); Albumin/Globulin Ratio 0.7 (1.1-2.2); Bilirubin,Direct 0.3 mg/dL (0.0-0.2); Bilirubin,Indirect 0.6 mg/dL (0.0-1.0); Bilirubin,Total 0.9 mg/dL (0.3-1.0); Calcium 8.1 mg/dL (8.6-10.3); Globulin 3.8 g/dL (2.4-3.5); Magnesium 2.1 mg/dL (1.6-2.6); Potassium 4.3 mEq/L (3.5-5.1); Total Protein 6.5 g/dL (6.4-8.9)
[2021-10-08] MEDS: Pantoprazole 40 MG VIAL IVP SCH ×2 (05:32→17:07)
[2021-10-08] MEDS: Chlorhexidine Rinse 15 ML MOUTHWASH MM SCH (08:49)
[2021-10-08] MEDS: Bumetanide 1 MG TABLET PO SCH ×2 (08:49→17:07)
[2021-10-08] MEDS: Phenylephrine 50 MG in 0.9 % Sodium Chloride 250 ML IVC SCH (20:11)
[2021-10-08] MEDS: Norepinephrine 4 MG/254 ML IV.SOLN IVC SCH (20:11)
[2021-10-08] MEDS: Gabapentin 300 MG CAPSULE PO SCH (22:24)
[2021-10-09] MEDS: Artificial Tears SOLN 15 ML BOTTLE BOTH EYES SCH ×6 (01:02→22:04)
[2021-10-09] MEDS: Insulin LISPRO 300 UNITS/3 ML VIAL SUBQ SCH ×6 (02:47→22:03)
[2021-10-09 03:13] LABS: Basophils % 0.3 %; Eosinophils # 0.1 K/mcL (0.0-0.6); Eosinophils % 0.7 %; Hematocrit 23.1 % (37.5-50.1); Hemoglobin 7.5 g/dL (12.9-16.9); Immature Granulocytes % 0.8 % (0-4); Lymphocytes # 0.8 K/mcL (0.6-4.6); Lymphocytes % 7.8 %; Mean Corpuscular HGB Conc 32.5 g/dL (31.6-35.5); Mean Corpuscular Hemoglobin 32.3 pg (28.0-33.3); Mean Corpuscular Volume 99.6 fL (83.0-100.0); Mean Platelet Volume 11.1 fL (9.4-12.4); Monocytes % 9.6 %; Neutrophils # 8.3 K/mcL (1.6-8.9); Platelet Count 152 K/mcL (140-400); Red Blood Count 2.32 M/mcL (4.19-5.50); Red Cell Distribution Width 16.5 % (11.5-14.5); Segmented Neutrophils % 80.8 %; White Blood Count 10.3 K/mcL (4.3-11.1)
[2021-10-09 03:31] LABS: Albumin 2.7 g/dL (3.5-5.7); Albumin/Globulin Ratio 0.8 (1.1-2.2); Bilirubin,Direct 0.4 mg/dL (0.0-0.2); Bilirubin,Indirect 0.5 mg/dL (0.0-1.0); Bilirubin,Total 0.9 mg/dL (0.3-1.0); Calcium 7.8 mg/dL (8.6-10.3); Globulin 3.6 g/dL (2.4-3.5); Phosphorous 3.7 mg/dL (2.7-4.5); Potassium 4.1 mEq/L (3.5-5.1); Total Protein 6.3 g/dL (6.4-8.9)
[2021-10-09 03:53] LABS: Hepatitis B Surface Antibody 103.26 mIU/mL
[2021-10-09 04:04] LABS: Hepatitis B Surface Antigen Nonreactive (Nonreactive)
[2021-10-09] MEDS: Pantoprazole 40 MG VIAL IVP SCH (06:56)
[2021-10-09] MEDS ORDERED: 0.9 % Sodium Chloride 250 ML IVC PRN (07:31)
[2021-10-09] MEDS ORDERED: 0.9 % Sodium Chloride 1,000 ML PRIME SCH (07:45)
[2021-10-09] MEDS ORDERED: *HR* Heparin 10,000 UNIT/10 ML VIAL IV PRN (07:56)
[2021-10-09] MEDS ORDERED: Lidocaine/EPI 1:100k 1% 50 ML VIAL ONE (09:03)
[2021-10-09] MEDS ORDERED: Heparin 1,000 UNITS/500 mL 500 ML ONE (09:03)
[2021-10-09] MEDS ORDERED: 0.9 % Sodium Chloride 500 ML ONE (09:31)
[2021-10-09] MEDS ORDERED: *HR* FentaNYL (PF) 100 MCG/2 ML VIAL IVP ONE (09:39)
[2021-10-09] MEDS ORDERED: *HR* Midazolam HCl 2 MG/2 ML VIAL IVP ONE (09:39)
[2021-10-09] MEDS ORDERED: *HR* Heparin 5,000 UNIT/ML VIAL ONE (09:56)
[2021-10-09] MEDS ORDERED: Darbepoetin 100 MCG/0.5 ML SYRINGE SQ SCH (10:00)
[2021-10-09] MEDS ORDERED: ceFAZolin 2,000 MG in 0.9 % Sodium Chloride 100 ML IVPB ONE (10:01)
[2021-10-09 14:38] LABS: Urine Collection Volume RANDOM mL
[2021-10-09] MEDS: Bumetanide 1 MG TABLET PO SCH ×2 (15:04→17:35)
[2021-10-09] MEDS ORDERED: SODIUM CHLORIDE/NAHCO3/KCL/PEG 4,000 ML SOLN.RECON PO ONE (17:00)
[2021-10-09 18:02] LABS: INR 1.6; Prothrombin Time 17.7 Seconds (9.4-12.1)
[2021-10-09 18:04] LABS: Hepatitis B Core IgM Nonreactive (Nonreactive)
[2021-10-09] MEDS: Gabapentin 300 MG CAPSULE PO SCH (22:06)
[2021-10-10] MEDS: Insulin LISPRO 300 UNITS/3 ML VIAL SUBQ SCH ×6 (00:22→21:18)
[2021-10-10 04:16] LABS: Basophils % 0.2 %; Eosinophils % 0.4 %; Hemoglobin 7.6 g/dL (12.9-16.9); Immature Granulocytes % 1.2 % (0-4); Lymphocytes # 0.7 K/mcL (0.6-4.6); Lymphocytes % 7.9 %; Mean Corpuscular HGB Conc 31.7 g/dL (31.6-35.5); Mean Corpuscular Hemoglobin 31.4 pg (28.0-33.3); Mean Corpuscular Volume 99.2 fL (83.0-100.0); Mean Platelet Volume 11.6 fL (9.4-12.4); Monocytes # 1.1 K/mcL (0.0-1.3); Monocytes % 11.2 %; Neutrophils # 7.4 K/mcL (1.6-8.9); Nucleated Red Blood Cells 0.2 /100 WBC (0); Platelet Count 141 K/mcL (140-400); Red Blood Count 2.42 M/mcL (4.19-5.50); Red Cell Distribution Width 16.5 % (11.5-14.5); Segmented Neutrophils % 79.1 %; White Blood Count 9.4 K/mcL (4.3-11.1)
[2021-10-10 04:20] LABS: VBG Ionized Calcium 1.06 mmol/L (1.15-1.35)
[2021-10-10 04:26] LABS: INR 1.7; Prothrombin Time 18.5 Seconds (9.4-12.1)
[2021-10-10 04:39] LABS: Albumin 2.7 g/dL (3.5-5.7); Albumin/Globulin Ratio 0.7 (1.1-2.2); Bilirubin,Direct 0.3 mg/dL (0.0-0.2); Bilirubin,Indirect 0.6 mg/dL (0.0-1.0); Bilirubin,Total 0.9 mg/dL (0.3-1.0); Calcium 7.5 mg/dL (8.6-10.3); Globulin 3.8 g/dL (2.4-3.5); Magnesium 1.7 mg/dL (1.6-2.6); Total Protein 6.5 g/dL (6.4-8.9)
[2021-10-10] MEDS: Bumetanide 1 MG TABLET PO SCH ×2 (08:32→17:54)
[2021-10-10] MEDS: Artificial Tears SOLN 15 ML BOTTLE BOTH EYES SCH ×4 (08:32→21:25)
[2021-10-10] MEDS: Pantoprazole 40 MG VIAL IVP SCH (08:32)
[2021-10-10] MEDS ORDERED: Lidocaine -MPF 2% 5 ML VIAL ONE (14:10)
[2021-10-10] MEDS ORDERED: EPHEDrine 50 MG/ML VIAL ONE (14:34)
[2021-10-10] MEDS: Gabapentin 300 MG CAPSULE PO SCH (21:25)
[2021-10-11] MEDS: Insulin LISPRO 300 UNITS/3 ML VIAL SUBQ SCH ×5 (00:42→16:18)
[2021-10-11 03:24] LABS: Basophils % 0.4 %; Eosinophils # 0.1 K/mcL (0.0-0.6); Eosinophils % 0.6 %; Hematocrit 24.6 % (37.5-50.1); Hemoglobin 7.7 g/dL (12.9-16.9); Immature Granulocytes % 1.5 % (0-4); Lymphocytes # 0.7 K/mcL (0.6-4.6); Lymphocytes % 8.9 %; Mean Corpuscular HGB Conc 31.3 g/dL (31.6-35.5); Mean Corpuscular Hemoglobin 31.6 pg (28.0-33.3); Mean Corpuscular Volume 100.8 fL (83.0-100.0); Monocytes # 0.9 K/mcL (0.0-1.3); Monocytes % 10.8 %; Neutrophils # 6.2 K/mcL (1.6-8.9); Nucleated Red Blood Cells 0.3 /100 WBC (0); Platelet Count 147 K/mcL (140-400); Red Blood Count 2.44 M/mcL (4.19-5.50); Red Cell Distribution Width 16.4 % (11.5-14.5); Segmented Neutrophils % 77.8 %
[2021-10-11 03:42] LABS: Calcium 7.7 mg/dL (8.6-10.3); Potassium 3.8 mEq/L (3.5-5.1)
[2021-10-11] MEDS ORDERED: 0.9 % Sodium Chloride 250 ML IVC PRN (08:11)
[2021-10-11] MEDS ORDERED: Apixaban 5 MG TABLET PO SCH (09:00)
[2021-10-11] MEDS ORDERED: allopurinoL 300 MG TABLET PO SCH (09:00)
[2021-10-11] MEDS ORDERED: lisinopriL 5 MG TABLET PO SCH (09:00)
[2021-10-11] MEDS: Artificial Tears SOLN 15 ML BOTTLE BOTH EYES SCH ×2 (13:43→13:44)
[2021-10-11] MEDS: Bumetanide 1 MG TABLET PO SCH (13:43)
[2021-10-11] MEDS: Pantoprazole 40 MG VIAL IVP SCH (13:43)
[2021-10-11 15:52] VITALS: BP 118/64; PULSE 72; TEMP 98.4; O2SAT 93
== END 2021-10-11 17:16 | disposition home or self-care (01) | DRG 280 ==
LOC: 3NENU → SUATTDRO 18:20 → ICNU 10-02 01:50 → 2ANU 10-07 17:14
PROVIDERS: ADMIT Hospitalist; ATTEND Internal Medicine
PROC: IRPERMA (2021-10-09 12:00)